=== PATIENT | male | born 1980 | race American Indian/Alaskan Native ===

== ENCOUNTER 2017-10-06 03:55 | Emergency (ER) | payer OTHER ==
[2017-10-06 04:13] VITALS: RESP 20; O2SAT 97
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
[2017-10-06 05:52] VITALS: BP 123/74; PULSE 66; TEMP 97.9
== END 2017-10-06 05:52 | disposition home or self-care (01) ==
LOC: C.ER 03:55
DX: S39.012A Strain of muscle, fascia and tendon of lower back, initial encounter (principal); V89.2XXA Person injured in unspecified motor-vehicle accident, traffic, initial encounter; M79.606 Pain in leg, unspecified